=== PATIENT | female | born 1985 | race African-American/Black ===

== ENCOUNTER 2019-08-09 06:31 | Emergency (ER) | payer OTHER ==
[2019-08-09 06:40] VITALS: BP 158/90; PULSE 96; RESP 18; TEMP 98
[2019-08-09] MEDS ORDERED: ACET/COD 300 MG/30 MG STARTER PACK 6 TAB BTL PO STA (06:50)
--- NOTE | 2019-08-09 06:50 | ED ---
ENT HPI - General Chief complaint: Dental/Oral Stated complaint: Jaw swelling/tooth pain Time Seen by Provider: 08/09/19 06:44 Source: patient, RN notes reviewed Mode of arrival: ambulatory Limitations: no limitations - History of Present Illness Initial comments: 34-year-old female presents emergency Department chief complaint of dental pain. Patient states she's had increasing dental pain last couple days she's had a known tooth fracture left lower aspect states it's swollen overnight. Patient states is from Department which cannot sleep. Patient denies any fevers chills no trismus. Patient denies any headache, dizziness, neck stiffness. Patient unable to follow-up with the dentist at this time. - Related Data Previous Rx's Medication Instructions Recorded Ibuprofen [Motrin] 800 mg PO Q6HR #30 tab 08/09/19 Penicillin V Potassium [Pen Vee K] 500 mg PO QID #40 tablet 08/09/19 Allergies Allergy/AdvReac Type Severity Reaction Status Date / Time No Known Allergies Allergy Verified 08/09/19 06:40 Review of Systems ROS Statement: Those systems with pertinent positive or pertinent negative responses have been documented in the HPI. ROS Other: All systems not noted in ROS Statement are negative. Past Medical History Past Medical History: No Reported History History of Any Multi-Drug Resistant Organisms: None Reported Past Surgical History: Section Past Psychological History: Anxiety Smoking Status: Current every day smoker Past Alcohol Use History: Occasional Past Drug Use History: None Reported General Exam Limitations: no limitations General appearance: alert, in no apparent distress Head exam: Present: atraumatic, normocephalic, normal inspection Eye exam: Present: normal appearance, PERRL, EOMI. Absent: scleral icterus, conjunctival injection, periorbital swelling ENT exam: Present: mucous membranes moist, TM's normal bilaterally. Absent: normal oropharynx (Dental fracture left lower, no drainable abscess there is mild swelling all along the lower mandibular region. No trismus) Neck exam: Present: normal inspection, full ROM. Absent: tenderness, meningismus, lymphadenopathy Respiratory exam: Present: normal lung sounds bilaterally. Absent: respiratory distress, wheezes, rales, rhonchi, stridor Cardiovascular Exam: Present: regular rate, normal rhythm, normal heart sounds. Absent: systolic murmur, diastolic murmur, rubs, gallop, clicks Neurological exam: Present: alert, oriented X3, CN II-XII intact Course Vital Signs 08/09/19 06:34 Temperature 98.0 F Pulse Rate 96 Respiratory 18 Rate Blood Pressure 158/90 O2 Sat by Pulse 97 Oximetry Medical Decision Making - Medical Decision Making 34-year-old male presented for dental pain. She is dental infection. Patient was started on Pen-Vee K. Patient was given ibuprofen. Patient will follow-up with dentist as soon as possible return for any worsening symptoms. Disposition Clinical Impression: Dental abscess, Fracture of tooth Disposition: HOME SELF-CARE Condition: Stable Instructions (If sedation given, give patient instructions): Dental Abscess (ED) Additional Instructions: Please return to the Emergency Department if symptoms worsen or any other concerns. Prescriptions: Ibuprofen [Motrin] 800 mg PO Q6HR #30 tab Penicillin V Potassium [Pen Vee K] 500 mg PO QID #40 tablet Is patient prescribed a controlled substance at d/c from ED?: No Referrals: None,Stated [Primary Care Provider] - 1-2 days Time of Disposition: 06:50
== END 2019-08-09 07:16 | disposition home or self-care (01) ==
LOC: EC 06:31
DX: S02.5XXA Fracture of tooth (traumatic), initial encounter for closed fracture (principal); K04.7 Periapical abscess without sinus; F17.200 Nicotine dependence, unspecified, uncomplicated; X58.XXXA Exposure to other specified factors, initial encounter
CPT/HCPCS: 99282